=== PATIENT | female | born 1995 | race Caucasian/White ===

== ENCOUNTER 2024-07-03 17:26 | Emergency (ER) | payer OTHER ==
[2024-07-03] MEDS ORDERED: Ibuprofen 800 MG TAB ONE (17:50)
[2024-07-03] MEDS ORDERED: Acetaminophen 500 MG TAB ONE (17:50)
[2024-07-03 18:17] LABS: Pregnancy Test - Urine (BHCG) Negative (Negative); Pregu Control Bar Appear? YES (CONTROL BAR)
[2024-07-03 18:18] LABS: Pregu Control Background? CLEAR/WHITE (CLR/WHITE); Specific Gravity 1.025 (1.002-1.036)
[2024-07-03 18:24] LABS: Amphetamine Not Detected (NotDetected); Barbiturates Screen Not Detected (NotDetected); Benzodiazepine Screen Not Detected (NotDetected); Cocaine Metabolite Screen Not Detected (NotDetected); Methadone Not Detected (NotDetected); Methamphetamine Not Detected (NotDetected); Opiate Screen Not Detected (NotDetected); Oxycodone Screen Not Detected (NotDetected); Phencyclidine (PCP) Not Detected (NotDetected); THC/Cannabinoid Screen Not Detected (NotDetected); Tricyclic Screen Not Detected (NotDetected)
== END 2024-07-03 18:39 | disposition home or self-care (01) ==
LOC: NAV ERS 17:26
DX: G89.11 Acute pain due to trauma (principal); S80.811A Abrasion, right lower leg, initial encounter; V43.53XA Car driver injured in collision with pick-up truck in traffic accident, initial encounter; Y93.89 Activity, other specified; J45.909 Unspecified asthma, uncomplicated; Z79.899 Other long term (current) drug therapy
CPT/HCPCS: 80306; 80307; 81025; 99283

== ENCOUNTER 2024-07-04 10:31 | Emergency (ER) | payer OTHER ==
[2024-07-04] MEDS ORDERED: Boostrix 0.5 ML (Tdap) VIAL (>/=7 yrs of age) ONE (12:25)
== END 2024-07-04 13:08 | disposition home or self-care (01) ==
LOC: NAV ERS 10:31
DX: S80.11XA Contusion of right lower leg, initial encounter (principal); S40.011A Contusion of right shoulder, initial encounter; S40.021A Contusion of right upper arm, initial encounter; Z23 Encounter for immunization; V43.53XA Car driver injured in collision with pick-up truck in traffic accident, initial encounter; Y93.89 Activity, other specified
CPT/HCPCS: 90471; 90715